=== PATIENT | male | born 1945 | race Caucasian/White ===

== ENCOUNTER 2018-03-06 04:10 | Emergency (ER) | payer MEDICARE, OTHER ==
[2018-03-06 04:42] LABS: BILIRUBIN,URINE NEGATIVE (NEGATIVE); GLUCOSE, URINE (UA) 100 mg/dL (NEGATIVE); KETONES,URINE (UA) NEGATIVE (NEGATIVE); LEUKOCYTE ESTERASE, URINE NEGATIVE (NEGATIVE); NITRITE,URINE NEGATIVE (NEGATIVE); OCCULT BLOOD,URINE SMALL (NEGATIVE); PROTEIN,URINE NEGATIVE (NEGATIVE); UROBILINOGEN,URINE 0.2 (NORMAL) E.U./dL (NORMAL)
[2018-03-06 04:43] LABS: CLARITY,URINE CLEAR (CLEAR)
[2018-03-06 04:47] LABS: BACTERIA,URINE None Seen /HPF (None Seen); SQUAMOUS EPITHELIAL CELL,UR NONE SEEN (<= Few)
--- NOTE | 2018-03-06 05:38 | ED Physician Documentation ---
PD HPI MALE - Stated complaint Stated Complaint: MALE - Chief complaint Chief Complaint: Abd Pain - History obtained from History obtained from: Patient - History of Present Illness Timing - onset: Enter time (21:00), Last night Timing - details: Gradual onset Pain level now: 8 Associated symptoms: Unable to urinate Similar symptoms before: Has not had sx before Recently seen: Other (cystoscopy 2 days ago) - Additional information Additional information: urge to urinate 9 PM last night, had some UO but felt sensation of incomplete voiding. He subsequently had increasing urge to void, increasing suprapubic pressure and pain and unable to urinate. has not had this before. Had cystoscopy 2 days ago Review of Systems Constitutional: denies: Fever : reports: Unable to Void. denies: Dysuria PD PAST MEDICAL HISTORY - Past Medical History Past Medical History: Yes Cardiovascular: Hypertension : Other Other Past Medical History: Prostate CA. - Past Surgical History Past Surgical History: Yes - Present Medications Home Medications: Ambulatory Orders Medication Instructions Recorded Confirmed No Known Home Medications [No 03/06/18 03/06/18 Known Home Medications] - Allergies Allergies/Adverse Reactions: Allergies Allergy/AdvReac Type Severity Reaction Status Date / Time No Known Drug Allergies Allergy Verified 03/06/18 04:43 - Social History Does the pt smoke?: No Smoking Status: Never smoker Does the pt drink ETOH?: Yes ETOH Use: Wine Does the pt have substance abuse?: No - Immunizations Immunizations are current?: Yes - POLST Patient has POLST: No PD ED PE NORMAL - Vitals Vital signs reviewed: Yes - General General: Alert and oriented X 3, Well developed/nourished, Other (painful distress) - Abdomen Abdomen: Soft, Other (suprapubic tenderness and fullness) - Back Back: No CVA TTP Results - Vitals Vitals: Oxygen O2 Source Room air - Labs Labs: Laboratory Tests 03/06/18 04:25 Urine Color YELLOW Urine Clarity CLEAR Urine pH 6.0 Ur Specific [place] 1.010 Urine Protein NEGATIVE Urine Glucose (UA) 100 H Urine Ketones NEGATIVE Urine Occult Blood SMALL H Urine Nitrite NEGATIVE Urine Bilirubin NEGATIVE Urine Urobilinogen 0.2 (NORMAL) Ur Leukocyte Esterase NEGATIVE Urine RBC 6-10 H Urine WBC 0-3 Ur Squamous Epith Cells NONE SEEN Urine Bacteria None Seen Ur Microscopic Review INDICATED Urine Culture Comments NOT INDICATED PD MEDICAL DECISION MAKING - ED course Complexity details: reviewed results, re-evaluated patient, considered differential, d/w patient ED course: RN inserted sheldon catheter with rapid resolution of symptoms associated with 1, 000 milliliter urine output. Departure - Departure Disposition: 01 Home, Self Care Clinical Impression: Urinary retention Condition: Good Instructions: ED Catheter Care Sheldon, ED Retention Urinary Male Comments: Follow up with your urologist early next week. If you cannot be seen by your urologist by mid-week, you can follow up with your primary care physician. If neither can schedule you to be seen by no later than mid-week, return to the emergency department so the catheter can be removed. Discharge Date/Time: 03/06/18 06:20
[2018-03-06 05:57] VITALS: BP 149/77
== END 2018-03-06 06:20 | disposition home or self-care (01) ==
LOC: ED 04:10
DX: R33.9 Retention of urine, unspecified (principal); C61 Malignant neoplasm of prostate; I10 Essential (primary) hypertension
CPT/HCPCS: 51702; 51798; 81001; 81003; 87086; 99282; 99283

== ENCOUNTER 2018-12-21 10:57 | Outpatient (CLI) | payer MEDICARE, OTHER | END 2018-12-21 10:58 | disposition home or self-care (01) | LOC: NS 10:57 | PROVIDERS: ATTEND Internal Medicine | DX: Z71.3 Dietary counseling and surveillance (principal); E11.9 Type 2 diabetes mellitus without complications | CPT/HCPCS: 97802 ==

== ENCOUNTER 2019-01-04 10:48 | Outpatient (CLI) | payer MEDICARE, OTHER | END 2019-01-04 10:49 | disposition home or self-care (01) | LOC: NS 10:48 | PROVIDERS: ATTEND Internal Medicine | DX: Z71.3 Dietary counseling and surveillance (principal); E11.9 Type 2 diabetes mellitus without complications | CPT/HCPCS: 97803 ==

== ENCOUNTER 2020-09-15 03:49 | Emergency (ER) | payer MEDICARE, OTHER ==
--- NOTE | 2020-09-15 04:04 | ED Physician Documentation ---
PD HPI MALE - Stated complaint Stated Complaint: MALE - Chief complaint Chief Complaint: Abd Pain - History obtained from History obtained from: Patient - History of Present Illness Timing - onset: Last night Timing - duration: Hours Timing - details: Gradual onset Associated symptoms: Unable to urinate Recently seen: Not recently seen - Additional information Additional information: Patient presents with urge to urinate but unable to do so over the past several hours. Patient was treated and released from the emergency department two years ago for urinary retention and subsequently had TURP. he says he has not had urinary problems since the procedure, which was performed last year, until the past few days when he developed urinary frequency with decreasing output despite sensation of incomplete voiding. Hes not been able to void at all despite severe urge to urinate and suprapubic pain over the past several hours. Review of Systems Constitutional: reports: Reviewed and negative : reports: Frequency, Unable to Void. denies: Dysuria, Hematuria PD PAST MEDICAL HISTORY - Past Medical History Cardiovascular: Hypertension Endocrine/Autoimmune: Type 2 diabetes : Other - Past Surgical History Past Surgical History: Yes - Present Medications Home Medications: Ambulatory Orders Medication Instructions Recorded Confirmed Losartan Potassium 25 mg PO DAILY 12/28/18 12/28/18 Tadalafil [Cialis] 10 mg PO DAILY PRN 12/28/18 12/28/18 metFORMIN [Glucophage] 1,000 mg PO BIDWM 12/28/18 12/28/18 - Allergies Allergies/Adverse Reactions: Allergies Allergy/AdvReac Type Severity Reaction Status Date / Time No Known Drug Allergies Allergy Verified 09/15/20 04:02 - Social History Does the pt smoke?: No Smoking Status: Never smoker Does the pt drink ETOH?: Yes Does the pt have substance abuse?: No - Immunizations Immunizations are current?: Yes - POLST Patient has POLST: No PD ED PE NORMAL - Vitals Vital signs reviewed: Yes - General General: Alert and oriented X 3, Well developed/nourished, Other (appears to be in mild-moderate painful distress) - Cardiac Cardiac: RRR, No murmur - Respiratory Respiratory: No respiratory distress, Clear bilaterally - Abdomen Abdomen: Soft, Other (tender and fullness suprapubic region) Results - Vitals Vitals: Vital Signs - 24 hr 11/27/20 11/27/20 11/27/20 03:50 06:00 07:22 Temperature 36.3 C L 36.8 C 36.7 C Heart Rate 92 77 91 Respiratory 18 16 14 Rate Blood Pressure 178/81 H 168/70 H 180/88 H O2 Saturation 98 99 99 Oxygen O2 Source Room air - Labs Labs: Laboratory Tests 09/15/20 04:00 Urine Color YELLOW Urine Clarity V Urine pH 5.5 Ur Specific [place] 1.020 Urine Protein 30 H Urine Glucose (UA) NEGATIVE Urine Ketones NEGATIVE Urine Occult Blood TRACE-INTA Urine Nitrite NEGATIVE Urine Bilirubin NEGATIVE Urine Urobilinogen 0.2 (NORMAL) Ur Leukocyte Esterase NEGATIVE Urine RBC 0-5 Urine WBC 0-3 Ur Squamous Epith Cells NONE SEEN Urine Bacteria Rare Ur Microscopic Review INDICATED Urine Culture Comments NOT INDICATED PD MEDICAL DECISION MAKING - ED course Complexity details: re-evaluated patient, considered differential, d/w patient ED course: bladder scan by ED RN demonstrates excess of 900cc in bladder. multiple attempts by two nurses as well as myself to insert catheter were unsuccessful. 16 fr sheldon as well as coude were tried. patients painful discomfort gradually increased and thus IV started and given 4 mg IV morphine. urology paged (covering for Dr. Hoffmann who is patients urologist), recommend consideration of the options of having patient f/u when office opens at 8:30 AM, transfer to [facility] ED, and/or for me to perform suprapubic tap to provide transient relief until one of the first two options. patient is in too much discomfort to wait until 8:30 outpatient f/u and I thus spoke with Dr. Coleman, [facility] ED attending. He accepts transfer, although also recommends considering suprapubic tap of bladder to provide relief until he can have sheldon placed. I initiated transfer process with patients permission and instructed ED RN to have equipment at bedside for suprapubic tap. However, when I went in again to perform procedure, patient was in NAD, smiling and conversant, explained to me that he was able to pass some urine (and he noted clots in urine) and this resulted in significant improvement in his level of comfort. By his description, it sounds like he passed no more than 100 cc (he points to the bottle of gel I had at bedside for US and says maybe a third or half of that bottle). Bedside US still shows easily identified and distended bladder but he does not have discomfort as I compress the area; at that point, performing suprapubic tap for transient relief was unnecessary. transfer process completed, as patient will still likely need imminent sheldon placement Departure - Departure Disposition: 02 Transfer Acute Care Hosp Clinical Impression: Urinary retention Condition: Stable Discharge Date/Time: 09/15/20 07:24
[2020-09-15 04:26] LABS: BILIRUBIN,URINE NEGATIVE (NEGATIVE); GLUCOSE, URINE (UA) NEGATIVE (NEGATIVE); KETONES,URINE (UA) NEGATIVE (NEGATIVE); LEUKOCYTE ESTERASE, URINE NEGATIVE (NEGATIVE); NITRITE,URINE NEGATIVE (NEGATIVE); OCCULT BLOOD,URINE TRACE-INTA (NEGATIVE); PH,URINE 5.5 PH (5.0-7.5); PROTEIN,URINE 30 mg/dL (NEGATIVE); UROBILINOGEN,URINE 0.2 (NORMAL) E.U./dL (NORMAL)
[2020-09-15 04:29] LABS: CLARITY,URINE V (CLEAR)
[2020-09-15 04:45] LABS: BACTERIA,URINE Rare /HPF (None Seen); RBC,URINE 0-5 /HPF (0-5); SQUAMOUS EPITHELIAL CELL,UR NONE SEEN (<= Few)
[2020-09-15] MEDS ORDERED: MORPHINE 10 MG/ML VIAL IM STA (05:00)
[2020-09-15] MEDS ORDERED: MORPHINE 2 MG/ML CARPUJECT IVP STA (05:12)
[2020-09-15 07:23] VITALS: BP 180/88
== END 2020-09-15 07:24 | disposition short-term general hospital (02) ==
LOC: ED 03:49
DX: R33.9 Retention of urine, unspecified (principal); R10.9 Unspecified abdominal pain; Z53.09 Procedure and treatment not carried out because of other contraindication; I10 Essential (primary) hypertension; E11.9 Type 2 diabetes mellitus without complications; Z79.84 Long term (current) use of oral hypoglycemic drugs
CPT/HCPCS: 51798; 81001; 81003; 87086; 96374; 99283

== ENCOUNTER 2020-09-15 07:02 | Outpatient (CLI) | payer MEDICARE, OTHER | END 2020-09-15 07:03 | disposition short-term general hospital (02) | LOC: EMS 07:02 | PROVIDERS: ATTEND Surgery | DX: R33.9 Retention of urine, unspecified (principal) | CPT/HCPCS: A0425; A0428 ==